=== PATIENT | male | born 1990 | race Two or more races ===

== ENCOUNTER 2023-10-22 15:51 | Emergency (ER) | payer OTHER ==
[~2023-10-22] VITALS: Ht 162.6 cm; Wt 79.5 kg
[2023-10-22] MEDS: fentaNYL/PF 50MCG/1 ML 2ML syringe IV ONE (16:09)
[2023-10-22] MEDS ORDERED: ondansetron/PF 4mg/2ml inj IV PRN (16:20)
[2023-10-22] MEDS ORDERED: ketorolac trometh. 30mg/ml inj. IV ONE (16:20)
[2023-10-22] MEDS: ketorolac tromethamine 15mg/ml inj. IV ONE ×2 (16:35→17:23)
[2023-10-22] MEDS: acetaminophen 1,000mg/100ml IV 100 ML IV ONE (16:35)
[2023-10-22] MEDS: fentaNYL/PF 50MCG/1 ML 2ML syringe IV PRN (16:36)
[2023-10-22] MEDS: bacitracin 15gm ointment TP ONE (17:22)
[2023-10-22] MEDS: HYDROcodone/acetaminophen 10/325mg tab PO ONE (17:30)
[2023-10-22] MEDS ORDERED: IBUP-1986 PO (17:45)
[2023-10-22] MEDS ORDERED: HYDR-3965 PO (17:45)
[2023-10-22] MEDS ORDERED: BACI28.42 TOP (17:45)
[2023-10-22 17:58] VITALS: BP 135/86; PULSE 76; RESP 16; O2SAT 95
== END 2023-10-22 17:50 | disposition home or self-care (01) ==
LOC: ER 15:52
DX: T21.01XA Burn of unspecified degree of chest wall, initial encounter (principal); T23.002A Burn of unspecified degree of left hand, unspecified site, initial encounter; T31.11 Burns involving 10-19% of body surface with 10-19% third degree burns; Z79.52 Long term (current) use of systemic steroids
CPT/HCPCS: 16020; 96365; 96375; 99284; A6223; J0131; J1885; J3010; J7030; A6258; A6446

== ENCOUNTER 2023-10-23 14:43 | Emergency (ER) | payer OTHER ==
[~2023-10-23] VITALS: Ht 160 cm; Wt 76.2 kg
[~2023-10-23 14:43] MED LIST: BACI28.42 TOP; HYDR-3965 PO; IBUP-1986 PO
[2023-10-23 14:54] VITALS: BP 156/82; PULSE 76; TEMP 97.8; O2SAT 94
[2023-10-23 17:26] VITALS: RESP 18
[2023-10-23] MEDS: HYDROcodone/acetaminophen 5mg/325mg tablet PO ONE (17:26)
== END 2023-10-23 17:31 | disposition home or self-care (01) ==
LOC: ER 14:43
DX: T22.00XD Burn of unspecified degree of shoulder and upper limb, except wrist and hand, unspecified site, subsequent encounter (principal); T31.11 Burns involving 10-19% of body surface with 10-19% third degree burns; Z79.52 Long term (current) use of systemic steroids
CPT/HCPCS: 16000; 99283; A6223; A6258; A6446